=== PATIENT | female | born 1990 | race Two or more races ===

== ENCOUNTER 2022-01-27 17:13 | Emergency (ER) | payer OTHER ==
[~2022-01-27] VITALS: Ht 152.4 cm; Wt 64.9 kg
== END 2022-01-27 18:23 | disposition home or self-care (01) ==
LOC: ER 17:13
DX: S81.821A Laceration with foreign body, right lower leg, initial encounter (principal); W26.9XXA Contact with unspecified sharp object(s), initial encounter; Y93.29 Activity, other involving ice and snow; Y92.89 Other specified places as the place of occurrence of the external cause